=== PATIENT | female | born 1965 ===

== ENCOUNTER 2016-08-14 10:58 | Emergency (ER) | payer MEDICAID, OTHER ==
[2016-08-14 11:10] VITALS: TEMP 97
[2016-08-14 11:11] VITALS: BMI 27.3
[2016-08-14 11:24] VITALS: RESP 18
[2016-08-14] MEDS ORDERED: Promethazine/Cod 6.25mg-10mg/5ml Syr UD PO STA (11:42)
--- NOTE | 2016-08-14 11:45 | ED PDOC ---
HPI: CCC, URI, Sore Throat Time Seen by Provider: 08/14/16 11:20 Chief Complaint (Nursing): Cough, Cold, Congestion Chief Complaint (Provider): Cough, Cold, Congestion History Per: Patient History/Exam Limitations: no limitations Onset/Duration Of Symptoms: Days Current Symptoms Are (Timing): Still Present Location Of Pain: Throat, Diffuse Myalgias, Headache Sick Contacts (Context): None Associated Symptoms: Cough Ear Symptoms: Bilateral: None Severity: Mild Additional Complaint(s): Patient is a 51 year old female with a history of DM, presents to ED for evaluation of cough and sore throat for 3 days. Patient also notes chest pain and headache with coughing. Denies SOB, fever, nausea, vomiting or fever. States she took Tylenol. PMD: Clinic Past Medical History Reviewed: Historical Data, Nursing Documentation, Vital Signs Vital Signs: Last Vital Signs Temp 97 F L 08/14/16 11:20 Pulse 66 08/14/16 11:20 Resp 18 08/14/16 11:20 BP 109/51 L 08/14/16 11:09 Pulse Ox 97 08/14/16 12:44 - Medical History PMH: Diabetes, GERD - Surgical History Surgical History: No Surg Hx - Family History Family History: States: No Known Family Hx - Living Arrangements Living Arrangements: With Family - Home Medications Home Medications: Ambulatory Orders Medication Instructions Recorded Omeprazole 20 mg PO DAILY 12/04/15 Doxycycline Hyclate 100 mg PO BID #28 tab 01/25/16 Naproxen [Naprosyn] 1 tab PO BID PRN #60 tab 01/25/16 metroNIDAZOLE [Flagyl] 500 mg PO BID #28 tab 01/25/16 Albuterol HFA [Ventolin HFA 90 2 puff IH [id number] PRN #1 inh 08/14/16 mcg/actuation (8 g)] Promethazine/Codeine 5 ml PO Q6 PRN #100 ml 08/14/16 [Phenergan/Codeine Oral Syrup] - Allergies Allergies/Adverse Reactions: Allergies Allergy/AdvReac Type Severity Reaction Status Date / Time No Known Allergies Allergy Verified 04/12/16 10:42 Review of Systems ROS Statement: Except As Marked, All Systems Reviewed And Found Negative Constitutional: Negative for: Fever, Chills, Weakness Eyes: Negative for: Vision Change ENT: Positive for: Throat Pain. Negative for: Ear Pain, Nose Discharge, Nose Congestion Cardiovascular: Positive for: Chest Pain. Negative for: Light Headedness Respiratory: Positive for: Cough. Negative for: Shortness of Breath, Sputum Gastrointestinal: Negative for: Nausea, Vomiting Musculoskeletal: Negative for: Neck Pain Skin: Negative for: Rash Neurological: Positive for: Headache. Negative for: Weakness, Numbness, Dizziness Physical Exam - Reviewed Nursing Documentation Reviewed: Yes Vital Signs Reviewed: Yes - Physical Exam Appears: Positive for: Non-toxic, No Acute Distress Skin: Positive for: Normal Color, Warm. Negative for: Rash Eye Exam: Positive for: Normal appearance, PERRL ENT: Negative for: Pharyngeal Erythema, Tonsillar Exudate Neck: Positive for: Normal, Painless ROM, Supple Cardiovascular/Chest: Positive for: Regular Rate, Rhythm. Negative for: Murmur Respiratory: Positive for: Normal Breath Sounds. Negative for: Respiratory Distress Extremity: Positive for: Normal ROM Neurologic/Psych: Positive for: Alert, Oriented - ECG O2 Sat by Pulse Oximetry: 97 (RA) Pulse Ox Interpretation: Normal - Radiology X-Ray: Viewed By Me, Read By Radiologist X-Ray Interpretation: No Acute Disease Medical Decision Making Medical Decision Making: Time: 1135 Initial impression: Viral illness vs. pharyngitis vs. bronchitis r/o influenza Initial plan: -- CXR -- Motrin PO -- Premethazine/Codeine -- Flu swab Scribe Attestation: Documented by Olga Claire acting as a scribe for Matt Hudson MD MD Scribe Attestation: All medical record entries made by the Scribe were at my direction and personally dictated by me. I have reviewed the chart and agree that the record accurately reflects my personal performance of the history, physical exam, medical decision making, and the department course for this patient. I have also personally directed, reviewed, and agree with the discharge instructions and disposition. Disposition - Clinical Impression Clinical Impression: Bronchitis - Patient ED Disposition Is Patient to be Admitted: No Doctor Will See Patient In The: Office Counseled Patient/Family Regarding: Studies Performed, Diagnosis, Need For Followup - Disposition Referrals: LTAC, [facility] within [facility] [Outside] Disposition: Routine/Home Disposition Time: 12:41 Condition: GOOD Additional Instructions: Return for worsening. Follow up with your PCP in 2-3 days. Prescriptions: Albuterol HFA [Ventolin HFA 90 mcg/actuation (8 g)] 2 puff IH [id number] PRN #1 inh PRN Reason: Wheezing Promethazine/Codeine [Phenergan/Codeine Oral Syrup] 5 ml PO Q6 PRN #100 ml PRN Reason: Cough Instructions: Acute Bronchitis (ED) Print Language: ESTONIAN
[2016-08-14] MEDS ORDERED: Promethazine/Cod 6.25mg-10mg/5ml Syr UD ONE (12:01)
--- NOTE | 2016-08-14 12:21 | RAD ---
HISTORY: chest pain cough COMPARISON: 04/12/2016 FINDINGS: LUNGS: The lungs are clear. PLEURA: No significant pleural effusion identified, no pneumothorax apparent. CARDIOVASCULAR: Normal. OSSEOUS STRUCTURES: No significant abnormalities. VISUALIZED UPPER ABDOMEN: Normal. OTHER FINDINGS: None. IMPRESSION: No active pulmonary disease.
[2016-08-14 12:59] VITALS: BP 110/60; PULSE 70; O2SAT 99
== END 2016-08-14 12:55 | disposition home or self-care (01) ==
LOC: H.ER 10:58
DX: J40 Bronchitis, not specified as acute or chronic (principal)

== ENCOUNTER 2017-05-16 05:59 | Emergency (ER) | payer MEDICAID, OTHER, SELFPAY ==
[2017-05-16 06:12] VITALS: BMI 28.0
--- NOTE | 2017-05-16 06:47 | ED PDOC ---
HPI: Abdomen Time Seen by Provider: 05/16/17 06:21 Chief Complaint (Nursing): Abdominal Pain Chief Complaint (Provider): Abdominal Pain History Per: Patient History/Exam Limitations: no limitations Onset/Duration Of Symptoms: Days (x 2) Current Symptoms Are (Timing): Still Present Location Of Pain/Discomfort: Epigastric Additional Complaint(s): 51-year-old female with a past medical history of diabetes presents to the emergency department complaining of epigastric pain associated with several episodes of vomiting, since yesterday. Symptoms began after dinner, and the pain has been constant. Vomit is described as non-bloody, non-bilious. She denies any fever, diarrhea, urinary frequency or dysuria. Patient currently still feels nauseous. She has not tolerated any liquids PO. PMD: The clinic Past Medical History Reviewed: Historical Data, Nursing Documentation, Vital Signs Vital Signs: Last Vital Signs Temp 98 F 05/16/17 13:00 Pulse 72 05/16/17 13:00 Resp 20 05/16/17 13:00 BP 112/74 05/16/17 13:00 Pulse Ox 98 05/16/17 13:00 - Medical History PMH: Diabetes, GERD - Surgical History Surgical History: No Surg Hx - Family History Family History: States: Unknown Family Hx - Home Medications Home Medications: Ambulatory Orders Medication Instructions Recorded Omeprazole 20 mg PO DAILY 12/04/15 Doxycycline Hyclate 100 mg PO BID #28 tab 01/25/16 Naproxen [Naprosyn] 1 tab PO BID PRN #60 tab 01/25/16 metroNIDAZOLE [Flagyl] 500 mg PO BID #28 tab 01/25/16 Albuterol HFA [Ventolin HFA 90 2 puff IH [id number] PRN #1 inh 08/14/16 mcg/actuation (8 g)] Promethazine/Codeine 5 ml PO Q6 PRN #100 ml 08/14/16 [Phenergan/Codeine Oral Syrup] Dicyclomine [Dicyclomine HCl] 10 mg PO TID PRN #10 cap 05/16/17 Ibuprofen [Motrin Tab] 600 mg PO Q6 PRN #15 tab 05/16/17 Ondansetron [Zofran] 4 mg PO Q6H PRN #10 tab 05/16/17 - Allergies Allergies/Adverse Reactions: Allergies Allergy/AdvReac Type Severity Reaction Status Date / Time No Known Allergies Allergy Verified 05/16/17 06:11 Review of Systems ROS Statement: Except As Marked, All Systems Reviewed And Found Negative Constitutional: Negative for: Fever, Chills Gastrointestinal: Positive for: Nausea, Vomiting, Abdominal Pain. Negative for : Diarrhea Genitourinary Female: Negative for: Dysuria, Frequency Physical Exam - Reviewed Nursing Documentation Reviewed: Yes Vital Signs Reviewed: Yes - Physical Exam Appears: Positive for: No Acute Distress, Uncomfortable Head Exam: Positive for: ATRAUMATIC, NORMOCEPHALIC Skin: Positive for: Normal Color, Warm, Dry Eye Exam: Positive for: EOMI, Normal appearance, PERRL Neck: Positive for: Normal, Painless ROM, Supple Cardiovascular/Chest: Positive for: Regular Rate, Rhythm. Negative for: Murmur Respiratory: Positive for: Normal Breath Sounds. Negative for: Accessory Muscle Use, Respiratory Distress Gastrointestinal/Abdominal: Positive for: Soft, Tenderness (epigastric and RUQ tenderness). Negative for: Guarding, Rebound Back: Positive for: Normal Inspection. Negative for: Vertebral Tenderness Extremity: Positive for: Normal ROM. Negative for: Pedal Edema, Deformity Neurologic/Psych: Positive for: Alert, Oriented - Laboratory Results Result Diagrams: 05/16/17 06:58 05/16/17 06:58 - ECG O2 Sat by Pulse Oximetry: 97 (RA) Pulse Ox Interpretation: Normal Medical Decision Making Medical Decision Making: Time: 06:52 Initial Impression: Abdominal pain Initial Plan: * ED urine dipstick * CMP * Lipase * CBC w/ differential * Morphine 4 mg IVP * NS IV 1000 ml at 1000 mls/hr * Zofran 4 mg IV * Pending US Abdomen Patient will be signed out to Dr. Adorno as of 07:00, pending full ER work-up and reevaluation. Scribe Attestation: Documented by Nandini Kirk, acting as a scribe for Matt Hudson MD Provider Scribe Attestation: All medical record entries made by the Scribe were at my direction and personally dictated by me. I have reviewed the chart and agree that the record accurately reflects my personal performance of the history, physical exam, medical decision making, and the department course for this patient. I have also personally directed, reviewed, and agree with the discharge instructions and disposition. Disposition - Clinical Impression Clinical Impression: Abdominal pain, Vomiting - Patient ED Disposition Is Patient to be Admitted: Transfer of Care Doctor Will See Patient In The: Office Counseled Patient/Family Regarding: Studies Performed, Diagnosis, Need For Followup - Disposition Referrals: FAMILY PROVIDER,NO [Primary Care Provider] - Disposition: Transfer of Care Disposition Time: 07:00 Condition: STABLE Additional Instructions: Liquid diet today, advance as tolerated, return to ER for any worse or new symptoms Take medications as directed. Prescriptions: Dicyclomine [Dicyclomine HCl] 10 mg PO TID PRN #10 cap PRN Reason: Gi Distress Ibuprofen [Motrin Tab] 600 mg PO Q6 PRN #15 tab PRN Reason: Pain, Moderate (4-7) Ondansetron [Zofran] 4 mg PO Q6H PRN #10 tab PRN Reason: Nausea/Vomiting Instructions: Gastroenteritis (ED), Acute Abdominal Pain (ED) Forms: [employer] (Latvian) Patient Signed Over To: Tanner Adorno III (pending full work-up)
[2017-05-16] MEDS ORDERED: Sodium Chloride 0.9% 1,000 ML IV STA ×2 (06:53→11:36)
[2017-05-16] MEDS ORDERED: Morphine 4 MG/ML VIAL IVP ONE (06:53)
[2017-05-16] MEDS ORDERED: Morphine 4 MG/ML VIAL ONE (07:04)
--- NOTE | 2017-05-16 07:08 | ED PDOC ---
- Laboratory Results Result Diagrams: 05/16/17 06:58 05/16/17 06:58 - ECG O2 Sat by Pulse Oximetry: 97 (RA) Medical Decision Making Medical Decision Makin:00 Patient signed out to me by Dr. Hudson pending Ultrasound, Labs, and possible CT. Accession No. : [id number] Patient Name / ID : JOIE RODRIGUEZ / [id number] Exam Date : 05/16/2017 10:05:21 ( Approved ) Study Comment : Sex / Age : F / 51Y Creator : Bubba Escobedo MD Dictator : Bubba Escobedo MD Material Assistant : Print Production Associate : Bubba Escobedo MD Approver2 : Report Date : 05/16/2017 10:37:21 My Comment : PROCEDURE: CT Abdomen and Pelvis with contrast HISTORY: R abd pain, vomiting COMPARISON: None. TECHNIQUE: Contrast dose: 95 mL Omnipaque 300 Radiation dose: Total exam DLP = 611.20 mGy-cm. This CT exam was performed using one or more of the following dose reduction techniques: Automated exposure control, adjustment of the mA and/or kV according to patient size, and/or use of iterative reconstruction technique. FINDINGS: LOWER THORAX: Unremarkable. LIVER: Unremarkable. No gross lesion or ductal dilatation. GALLBLADDER AND BILE DUCTS: Unremarkable. PANCREAS: Unremarkable. No gross lesion or ductal dilatation. SPLEEN: Unremarkable. ADRENALS: Unremarkable. No mass. KIDNEYS AND URETERS: Unremarkable. No hydronephrosis. No solid mass. VASCULATURE: Unremarkable. No aortic aneurysm. BOWEL: Unremarkable. No obstruction. No gross mural thickening. APPENDIX: Normal appendix. PERITONEUM: Unremarkable. No free fluid. No free air. LYMPH NODES: Unremarkable. No enlarged lymph nodes. BLADDER: Unremarkable. REPRODUCTIVE: Normal uterus BONES: No acute fracture. OTHER FINDINGS: None. IMPRESSION: Unremarkable contrast enhanced CT of the abdomen and pelvis Reassess --1030a improving, no vomiting, abdomen mild diffuse tenderness Scribe Attestation: Documented by Jeovany Nova acting as a scribe for Tanner Adorno DO. Disposition - Disposition Referrals: FAMILY PROVIDER,NO [Primary Care Provider] - Forms: [employer] (Divehi)
[2017-05-16 07:17] LABS: ALBUMIN 4.5 g/dL (3.5-5.0); ALT/SGPT 71 U/L (9-52); AST/SGOT 32 U/L (14-36); BLOOD UREA NITROGEN 31 mg/dl (7-17); CALCIUM 9.6 mg/dL (8.4-10.2); GFR AFRICAN-AMERICAN > 60; GFR NON-AFRICAN AMERICAN > 60; LIPASE 48 U/L (23-300)
[2017-05-16 07:22] LABS: ALB/GLOB RATIO 1.2 (1.0-2.1)
[2017-05-16 07:53] LABS: HEMOGLOBIN 13.6 g/dL (12.0-16.0); LYMPH # 0.4 K/uL (1.0-4.3); LYMPH % 3.2 % (20.0-40.0); MEAN CELL VOLUME 90.2 fl (81.0-99.0); MEAN CORPUSCULAR HEMOGLOBIN 31.9 pg (27.0-31.0); MEAN CORPUSCULAR HGB CONC 35.3 g/dL (33.0-37.0); MEAN PLATELET VOLUME 9.2 fl (7.2-11.7); MONO # 0.4 K/uL (0.0-0.8); NEUT % 93.8 % (50.0-75.0); NRBC % 0.1 % (0.0-0.0); PLATELET COUNT 269 K/uL (130-400); RBC 4.26 Mil/uL (3.80-5.20); RED CELL DISTRIBUTION WIDTH 13.3 % (11.5-14.5); WHITE BLOOD COUNT 11.8 K/uL (4.8-10.8)
[2017-05-16 09:42] LABS: BANDS 4 % (0-2); LYMPHOCYTE 6 % (20-50); MONOCYTE 5 % (0-10); NEUTROPHIL 85 % (42-75); PLATELET ESTIMATE NORMAL (NORMAL); TOTAL CELLS COUNTED 100
--- NOTE | 2017-05-16 09:42 | US ---
HISTORY: ruq epigastric pain vomiting COMPARISON: None. TECHNIQUE: Sonographic evaluation of the right upper quadrant of the abdomen. FINDINGS: LIVER: Measures 17.6 cm in length. Diffusely increased echogenicity of the liver parenchyma. Consistent with fatty infiltration. No mass. No biliary ductal dilatation. GALLBLADDER: Unremarkable. No gallstones. COMMON BILE DUCT: Measures 5 mm. No stones. No dilatation. PANCREAS: Unremarkable as visualized. No mass. No ductal dilatation. RIGHT KIDNEY: Measures 11.7 cm in length. Normal echogenicity. No calculus, mass, or hydronephrosis. AORTA: No aneurysmal dilatation. IVC: Unremarkable. OTHER FINDINGS: None . IMPRESSION: No evidence of cholelithiasis or cholecystitis. Fatty infiltration of the liver. Otherwise unremarkable.
[2017-05-16] MEDS ORDERED: Iohexol 300 100 ML IJ ONE (09:52)
--- NOTE | 2017-05-16 10:38 | CT ---
PROCEDURE: CT Abdomen and Pelvis with contrast HISTORY: R abd pain, vomiting COMPARISON: None. TECHNIQUE: Contrast dose: 95 mL Omnipaque 300 Radiation dose: Total exam DLP = 611.20 mGy-cm. This CT exam was performed using one or more of the following dose reduction techniques: Automated exposure control, adjustment of the mA and/or kV according to patient size, and/or use of iterative reconstruction technique. FINDINGS: LOWER THORAX: Unremarkable. LIVER: Unremarkable. No gross lesion or ductal dilatation. GALLBLADDER AND BILE DUCTS: Unremarkable. PANCREAS: Unremarkable. No gross lesion or ductal dilatation. SPLEEN: Unremarkable. ADRENALS: Unremarkable. No mass. KIDNEYS AND URETERS: Unremarkable. No hydronephrosis. No solid mass. VASCULATURE: Unremarkable. No aortic aneurysm. BOWEL: Unremarkable. No obstruction. No gross mural thickening. APPENDIX: Normal appendix. PERITONEUM: Unremarkable. No free fluid. No free air. LYMPH NODES: Unremarkable. No enlarged lymph nodes. BLADDER: Unremarkable. REPRODUCTIVE: Normal uterus BONES: No acute fracture. OTHER FINDINGS: None. IMPRESSION: Unremarkable contrast enhanced CT of the abdomen and pelvis.
[2017-05-16 13:28] VITALS: BP 112/74; PULSE 72; RESP 20; TEMP 98
[2017-05-16 19:21] VITALS: O2SAT 97
== END 2017-05-16 13:00 | disposition home or self-care (01) ==
LOC: H.ER 05:59
DX: K52.9 Noninfective gastroenteritis and colitis, unspecified (principal); E11.9 Type 2 diabetes mellitus without complications; K21.9 Gastro-esophageal reflux disease without esophagitis; K76.0 Fatty (change of) liver, not elsewhere classified
CPT/HCPCS: 74177; 76705; 80053; 82948; 83690; 85025; 96361; 96374; 96375; 99283; J1885; J2270; J2405; J7040; Q9967

== ENCOUNTER 2017-06-23 17:43 | Emergency (ER) | payer MEDICAID, OTHER ==
[2017-06-23 17:43] VITALS: BMI 26.2
[2017-06-23 17:59] VITALS: BP 125/63; PULSE 85; RESP 16; TEMP 99.3; O2SAT 99
[2017-06-23] MEDS ORDERED: Naproxen 500 MG TAB PO ONE (18:49)
--- NOTE | 2017-06-23 19:06 | ED PDOC ---
HPI: CCC, URI, Sore Throat Time Seen by Provider: 06/23/17 18:01 Chief Complaint (Nursing): Flu-like Symptoms Chief Complaint (Provider): Flu-like symptoms History Per: Patient History/Exam Limitations: no limitations Onset/Duration Of Symptoms: Days Current Symptoms Are (Timing): Still Present Associated Symptoms: Fever, Cough, Nasal Congestion, Other (body aches). denies : Nausea, Vomiting, Diarrhea Ear Symptoms: Bilateral: None Additional Complaint(s): Nicki Roberson is a 51 year old female, with a past medical history of diabetes, who presents to the emergency department complaining of fever, cough, congestion and body aches onset for x3 days. Patient took Tylenol with no relief of symptoms. She denies any chest pain, shortness of breath, hemoptysis, abdominal pain, nausea, vomit or diarrhea. No further medical complaints. PMD: None provided. Past Medical History Reviewed: Historical Data, Nursing Documentation, Vital Signs Vital Signs: Last Vital Signs Temp 99.3 F 06/23/17 17:57 Pulse 85 06/23/17 17:57 Resp 16 06/23/17 17:57 BP 125/63 06/23/17 17:57 Pulse Ox 99 06/23/17 19:55 - Medical History PMH: Diabetes, GERD - Surgical History Surgical History: No Surg Hx - Family History Family History: States: Unknown Family Hx - Social History Current smoker - smoking cessation education provided: No Alcohol: None Drugs: Denies - Home Medications Home Medications: Ambulatory Orders Medication Instructions Recorded Omeprazole 20 mg PO DAILY 12/04/15 Doxycycline Hyclate 100 mg PO BID #28 tab 01/25/16 Naproxen [Naprosyn] 1 tab PO BID PRN #60 tab 01/25/16 metroNIDAZOLE [Flagyl] 500 mg PO BID #28 tab 01/25/16 Albuterol HFA [Ventolin HFA 90 2 puff IH [id number] PRN #1 inh 08/14/16 mcg/actuation (8 g)] Promethazine/Codeine 5 ml PO Q6 PRN #100 ml 08/14/16 [Phenergan/Codeine Oral Syrup] Dicyclomine [Dicyclomine HCl] 10 mg PO TID PRN #10 cap 05/16/17 Ibuprofen [Motrin Tab] 600 mg PO Q6 PRN #15 tab 05/16/17 Ondansetron [Zofran] 4 mg PO Q6H PRN #10 tab 05/16/17 Azithromycin [Zithromax] 250 mg PO DAILY #6 tab 06/23/17 Benzonatate [Tessalon Perle] 100 mg PO Q8 PRN #30 capsule 06/23/17 Ibuprofen [Motrin] 600 mg PO Q6 PRN #15 tab 06/23/17 - Allergies Allergies/Adverse Reactions: Allergies Allergy/AdvReac Type Severity Reaction Status Date / Time No Known Allergies Allergy Verified 06/23/17 17:56 Review of Systems ROS Statement: Except As Marked, All Systems Reviewed And Found Negative Constitutional: Positive for: Fever, Other (body aches) ENT: Positive for: Nose Congestion Cardiovascular: Negative for: Chest Pain Respiratory: Positive for: Cough. Negative for: Shortness of Breath, Hemoptysis Gastrointestinal: Negative for: Nausea, Vomiting, Abdominal Pain, Diarrhea Physical Exam - Reviewed Nursing Documentation Reviewed: Yes Vital Signs Reviewed: Yes - Physical Exam Comments: Appears: No acute distress Skin: Normal color, Warm, Dry Eyes: Normal appearance, PERRL, EOMI ENT: Normal Cardiac: Regular rate and rhythm Lungs: Normal breath sounds, no respiratory distress, no accessory muscle use Abdominal: No tenderness Neuro: Alert, Oriented - ECG O2 Sat by Pulse Oximetry: 99 (RA) Pulse Ox Interpretation: Normal - Radiology X-Ray: Interpreted by Oh (CXR) X-Ray Interpretation: No Acute Disease Medical Decision Making Medical Decision Making: Initial Impression: Influenza-like illness Initial Plan: --CXR (PA/LAT) [Chest two views (AP/LAT)] [RAD] --Naproxen 500 mg PO --reevaluation ~ Scribe Attestation: Documented by Aleyxs Escamilla, acting as a scribe for Dakota E Pormentilla PA-C. Provider Scribe Attestation: All medical record entries made by the Scribe were at my direction and personally dictated by me. I have reviewed the chart and agree that the record accurately reflects my personal performance of the history, physical exam, medical decision making, and the department course for this patient. I have also personally directed, reviewed, and agree with the discharge instructions and disposition. Disposition - Clinical Impression Clinical Impression: Influenza-like symptoms - Patient ED Disposition Is Patient to be Admitted: No - Disposition Disposition: Routine/Home Disposition Time: 19:53 Condition: STABLE Prescriptions: Azithromycin [Zithromax] 250 mg PO DAILY #6 tab Benzonatate [Tessalon Perle] 100 mg PO Q8 PRN #30 capsule PRN Reason: Cough Ibuprofen [Motrin] 600 mg PO Q6 PRN #15 tab PRN Reason: Fever >100.4 F Instructions: Influenza (ED) Forms: [employer] (Hungarian) Print Language: CAMEROONIAN
--- NOTE | 2017-06-24 12:46 | RAD ---
HISTORY: cough COMPARISON: Comparison is made with 08/14/2026 TECHNIQUE: Chest PA and lateral FINDINGS: LUNGS: No active pulmonary disease. PLEURA: No significant pleural effusion identified. No pneumothorax apparent. CARDIOVASCULAR: Normal. OSSEOUS STRUCTURES: No significant abnormalities. VISUALIZED UPPER ABDOMEN: Normal. OTHER FINDINGS: None. IMPRESSION: No active disease. No significant interval change noted since the previous exam.
== END 2017-06-23 20:17 | disposition home or self-care (01) ==
LOC: H.ER 17:43
DX: J11.1 Influenza due to unidentified influenza virus with other respiratory manifestations (principal); E11.9 Type 2 diabetes mellitus without complications

== ENCOUNTER 2017-09-15 18:48 | Emergency (ER) | payer SELFPAY ==
[2017-09-15 18:48] VITALS: BMI 26.2
[2017-09-15 19:09] VITALS: BP 156/79; PULSE 64; RESP 18; TEMP 97.5; O2SAT 99
--- NOTE | 2017-09-15 20:24 | ED PDOC ---
HPI: Back Time Seen by Provider: 09/15/17 19:42 Chief Complaint (Nursing): Back Pain Chief Complaint (Provider): Back Pain History Per: Patient History/Exam Limitations: no limitations, language barrier (interpreter translator #: [id number] ) Onset/Duration Of Symptoms: Days Current Symptoms Are (Timing): Still Present Additional Complaint(s): Nicki Roberson is a 52 year old female with a past medical history of diabetes and gastroesophageal reflux disease who is presenting to the ER with complaints of lower back pain, onset 1 week ago. Patient states that the pain sometimes radiates to her abdomen, and has associated shoulder pain. She denies any nausea, vomiting, diarrhea, fevers, or urinary symptoms. Patient offers no other medical complaints at this time. PMD: Doctor, Dion Past Medical History Reviewed: Historical Data, Nursing Documentation, Vital Signs Vital Signs: Last Vital Signs Temp 97.5 F L 09/15/17 19:06 Pulse 64 09/15/17 19:06 Resp 18 09/15/17 19:06 BP 156/79 H 09/15/17 19:06 Pulse Ox 99 09/15/17 19:06 - Medical History PMH: Diabetes, GERD - Surgical History Surgical History: No Surg Hx - Family History Family History: States: Unknown Family Hx - Social History Current smoker - smoking cessation education provided: No Alcohol: None Drugs: Denies - Home Medications Home Medications: Ambulatory Orders Medication Instructions Recorded Omeprazole 20 mg PO DAILY 12/04/15 Doxycycline Hyclate 100 mg PO BID #28 tab 01/25/16 Naproxen [Naprosyn] 1 tab PO BID PRN #60 tab 01/25/16 metroNIDAZOLE [Flagyl] 500 mg PO BID #28 tab 01/25/16 Albuterol HFA [Ventolin HFA 90 2 puff [id number] [id number] PRN #1 inh 08/14/16 mcg/actuation (8 g)] Promethazine/Codeine 5 ml PO Q6 PRN #100 ml 08/14/16 [Phenergan/Codeine Oral Syrup] Dicyclomine [Dicyclomine HCl] 10 mg PO TID PRN #10 cap 05/16/17 Ibuprofen [Motrin Tab] 600 mg PO Q6 PRN #15 tab 05/16/17 Ondansetron [Zofran] 4 mg PO Q6H PRN #10 tab 05/16/17 Azithromycin [Zithromax] 250 mg PO DAILY #6 tab 06/23/17 Benzonatate [Tessalon Perle] 100 mg PO Q8 PRN #30 capsule 06/23/17 Ibuprofen [Motrin] 600 mg PO Q6 PRN #15 tab 06/23/17 Cyclobenzaprine [Cyclobenzaprine 10 mg PO Q8H PRN #12 tab 09/15/17 HCl] predniSONE [predniSONE Tab] 20 mg PO DAILY #12 tab 09/15/17 - Allergies Allergies/Adverse Reactions: Allergies Allergy/AdvReac Type Severity Reaction Status Date / Time No Known Allergies Allergy Verified 06/23/17 17:56 Review of Systems ROS Statement: Except As Marked, All Systems Reviewed And Found Negative Constitutional: Negative for: Fever Gastrointestinal: Positive for: Abdominal Pain (mild). Negative for: Nausea, Vomiting, Diarrhea Genitourinary Female: Negative for: Other (urinary symptoms) Musculoskeletal: Positive for: Back Pain Physical Exam - Reviewed Nursing Documentation Reviewed: Yes Vital Signs Reviewed: Yes - Physical Exam Appears: Positive for: Non-toxic, No Acute Distress Head Exam: Positive for: ATRAUMATIC, NORMAL INSPECTION, NORMOCEPHALIC Skin: Positive for: Normal Color, Warm Eye Exam: Positive for: Normal appearance ENT: Positive for: Normal ENT Inspection Neck: Positive for: Normal Cardiovascular/Chest: Positive for: Regular Rate, Rhythm Respiratory: Positive for: Normal Breath Sounds. Negative for: Respiratory Distress Gastrointestinal/Abdominal: Positive for: Normal Exam, Soft. Negative for: Tenderness, Guarding Back: Positive for: Other (mild paralumbar tenderness). Negative for: Vertebral Tenderness Extremity: Positive for: Normal ROM. Negative for: Deformity Neurologic/Psych: Positive for: Alert, Oriented. Negative for: Motor/Sensory Deficits - ECG O2 Sat by Pulse Oximetry: 99 (RA) Pulse Ox Interpretation: Normal Medical Decision Making Medical Decision Making: Time: 20:19 Plan: --Flexeril 10 mg PO --Solu-Medrol 125 mg IV --Urine Culture --Urinalysis Urine without sign of infection. Scribe Attestation: Documented by Sabrina Maurer, acting as a scribe for Li Le PA-C. Provider Scribe Attestation: All medical record entries made by the Scribe were at my direction and personally dictated by me. I have reviewed the chart and agree that the record accurately reflects my personal performance of the history, physical exam, medical decision making, and the department course for this patient. I have also personally directed, reviewed, and agree with the discharge instructions and disposition Disposition - Clinical Impression Clinical Impression: Sciatica - Patient ED Disposition Is Patient to be Admitted: No - Disposition Disposition: Routine/Home Disposition Time: 21:16 Condition: GOOD Prescriptions: Cyclobenzaprine [Cyclobenzaprine HCl] 10 mg PO Q8H PRN #12 tab PRN Reason: Muscle Spasm predniSONE [predniSONE Tab] 20 mg PO DAILY #12 tab Instructions: Sciatica Forms: [employer] (Gambian)
[2017-09-15 21:02] LABS: SQUAMOUS EPITHIAL < 1 /hpf (0-5); URINE BACTERIA RARE (<OCC); URINE BILIRUBIN NEGATIVE (NEGATIVE); URINE BLOOD NEGATIVE (NEGATIVE); URINE CLARITY CLEAR (Clear); URINE COLOR STRAW (YELLOW); URINE GLUCOSE (UA) NEG (Normal); URINE LEUKOCYTE ESTERASE TRACE Leu/uL (Negative); URINE PROTEIN NEGATIVE (NEGATIVE); URINE UROBILINOGEN 0.2-1.0 mg/dL (0.2-1.0)
== END 2017-09-15 22:59 | disposition home or self-care (01) ==
LOC: H.ER 18:48
DX: M54.30 Sciatica, unspecified side (principal); E11.9 Type 2 diabetes mellitus without complications; K21.9 Gastro-esophageal reflux disease without esophagitis
CPT/HCPCS: 81003; 87086; 96372; 99283; J2930

== ENCOUNTER 2018-04-06 17:53 | Emergency (ER) | payer MEDICAID, OTHER ==
[2018-04-06 17:53] VITALS: BMI 26.2
[2018-04-06 18:24] VITALS: BP 137/74; PULSE 65; RESP 16; TEMP 98.3; O2SAT 99
[2018-04-06] MEDS ORDERED: Sodium Chloride 0.9% 1,000 ML IV STA (18:57)
[2018-04-06] MEDS ORDERED: Oxycodone/Acetaminophen 5/325 mg Tab PO STA (18:57)
[2018-04-06] MEDS ORDERED: Oxycodone/Acetaminophen 5/325 mg Tab ONE (19:06)
[2018-04-06 19:43] LABS: BASO % 0.1 % (0.0-2.0); EOS # 0.1 K/uL (0.0-0.7); EOS % 1.3 % (0.0-4.0); HEMOGLOBIN 12.7 g/dL (12.0-16.0); LYMPH # 2.2 K/uL (1.0-4.3); MEAN CORPUSCULAR HEMOGLOBIN 30.9 pg (27.0-31.0); MEAN PLATELET VOLUME 8.9 fl (7.2-11.7); MONO # 0.6 K/uL (0.0-0.8); MONO % 6.9 % (0.0-10.0); NEUT # 5.5 K/uL (1.8-7.0); NEUT % 65.7 % (50.0-75.0); NRBC % 0.1 % (0.0-0.0); RBC 4.11 Mil/uL (3.80-5.20); RED CELL DISTRIBUTION WIDTH 14.4 % (11.5-14.5); WHITE BLOOD COUNT 8.4 K/uL (4.8-10.8)
--- NOTE | 2018-04-06 19:43 | ED PDOC ---
HPI: Abdomen Time Seen by Provider: 04/06/18 18:34 Chief Complaint (Nursing): Abdominal Pain Chief Complaint (Provider): Abdominal Pain History Per: Patient History/Exam Limitations: no limitations Onset/Duration Of Symptoms: Days (x2) Current Symptoms Are (Timing): Still Present Additional Complaint(s): 52 year old with pmHx of pre-diabetes, presents to ED with a complaint of worsening lower abdominal pain associated with dysuria and lower back pain since yesterday. Patient states symptoms feel similar to menstrual cramps, however, she has been menopausal for over a year. She denies any fever, chills, bloody urine, vomiting, diarrhea, constipation, or taking medication for relief STENO TYPIST. PCP: Dr. Carrol Joe Past Medical History Reviewed: Historical Data, Nursing Documentation, Vital Signs Vital Signs: Last Vital Signs Temp 98.3 F 04/06/18 18:20 Pulse 65 04/06/18 18:20 Resp 16 04/06/18 18:20 BP 137/74 04/06/18 18:20 Pulse Ox 99 04/06/18 18:20 - Medical History PMH: Diabetes, GERD - Family History Family History: States: Unknown Family Hx - Home Medications Home Medications: Ambulatory Orders Medication Instructions Recorded RX: Omeprazole 20 mg PO DAILY 12/04/15 RX: Doxycycline Hyclate 100 mg PO BID #28 tab 01/25/16 RX: Naproxen [Naprosyn] 1 tab PO BID PRN #60 tab 01/25/16 metroNIDAZOLE [Flagyl] 500 mg PO BID #28 tab 01/25/16 RX: Albuterol HFA [Ventolin HFA 90 2 puff IH [id number] PRN #1 inh 08/14/16 mcg/actuation (8 g)] RX: Promethazine/Codeine 5 ml PO Q6 PRN #100 ml 08/14/16 [Phenergan/Codeine Oral Syrup] Dicyclomine [Dicyclomine HCl] 10 mg PO TID PRN #10 cap 05/16/17 Ondansetron [Zofran] 4 mg PO Q6H PRN #10 tab 05/16/17 RX: Ibuprofen [Motrin Tab] 600 mg PO Q6 PRN #15 tab 05/16/17 Azithromycin [Zithromax] 250 mg PO DAILY #6 tab 06/23/17 Benzonatate [Tessalon Perle] 100 mg PO Q8 PRN #30 capsule 06/23/17 Ibuprofen [Motrin] 600 mg PO Q6 PRN #15 tab 06/23/17 Cyclobenzaprine [Cyclobenzaprine 10 mg PO Q8H PRN #12 tab 09/15/17 HCl] RX: predniSONE [predniSONE Tab] 20 mg PO DAILY #12 tab 09/15/17 Nitrofurantoin Macrocrystals 100 mg PO BID #10 cap 04/06/18 [Macrobid] - Allergies Allergies/Adverse Reactions: Allergies Allergy/AdvReac Type Severity Reaction Status Date / Time No Known Allergies Allergy Verified 04/06/18 18:20 Review of Systems ROS Statement: Except As Marked, All Systems Reviewed And Found Negative Constitutional: Negative for: Fever, Chills Gastrointestinal: Positive for: Abdominal Pain (lower). Negative for: Vomiting, Diarrhea, Constipation Genitourinary Female: Positive for: Dysuria. Negative for: Hematuria Musculoskeletal: Positive for: Back Pain (left-sided) Physical Exam - Reviewed Nursing Documentation Reviewed: Yes Vital Signs Reviewed: Yes - Physical Exam Appears: Positive for: Non-toxic, No Acute Distress Head Exam: Positive for: ATRAUMATIC, NORMAL INSPECTION, NORMOCEPHALIC Skin: Positive for: Normal Color Eye Exam: Positive for: Normal appearance ENT: Positive for: Normal ENT Inspection Neck: Positive for: Normal Cardiovascular/Chest: Positive for: Regular Rate, Rhythm, Chest Non Tender Respiratory: Positive for: Normal Breath Sounds. Negative for: Respiratory Distress Gastrointestinal/Abdominal: Positive for: Soft, Tenderness (suprapubic). Negative for: Mass Back: Positive for: L CVA Tenderness. Negative for: R CVA Tenderness Extremity: Positive for: Normal ROM (upper/lower) Neurologic/Psych: Positive for: Alert, Oriented - Laboratory Results Result Diagrams: 04/06/18 19:27 04/06/18 19:27 - ECG O2 Sat by Pulse Oximetry: 99 (RA) Pulse Ox Interpretation: Normal Medical Decision Making Medical Decision Making: Time: 1856 Initial Plan: work-up for UTI vs. pyelonephritis vs. intra-abdominal pathology. * Labs * IV fluids * Percocet 5/325mg PO * Re-eval Scribe Attestation: Documented by Cat Parkinson, acting as a scribe for Marisa Reza MD. Provider Scribe Attestation: All medical record entries made by the Scribe were at my direction and personally dictated by me. I have reviewed the chart and agree that the record accurately reflects my personal performance of the history, physical exam, medical decision making, and the department course for this patient. I have also personally directed, reviewed, and agree with the discharge instructions and disposition. Pt continued to have left flank pain and abdominal pain and CT scan was performed to rule out stone which was normal. Pt now states she has had vaginal bleeding for the past few days despite having a year without menstruation. Labs show stable hemoglobin. Discussed the findings with the patient and her daughter. Will given Macrobid for UTI. Pt to schedule follow up appointment with gynecology for further workup and discussed the possibility of needing a biopsy. Disposition - Clinical Impression Clinical Impression: Urinary tract infection, Vaginal bleeding, abnormal - Disposition Disposition: Routine/Home Disposition Time: 22:15 Condition: STABLE Additional Instructions: Take antibiotics as prescribed for urinary tract infection. Follow up with gynecology for evaluation of vaginal bleeding. Return to the emergency department if symptoms worsen or if new symptoms develop. Prescriptions: Nitrofurantoin Macrocrystals [Macrobid] 100 mg PO BID #10 cap Instructions: Urinary Tract Infection, Adult (DC), Dysfunctional Uterine Bleeding (ED) Forms: [employer] (Lithuanian), [facility] ED School/Work Excuse Print Language: CONGOLESE
[2018-04-06 19:55] LABS: SQUAMOUS EPITHIAL 1 /hpf (0-5); URINE BACTERIA RARE (<OCC); URINE BILIRUBIN NEGATIVE (NEGATIVE); URINE BLOOD LARGE (NEGATIVE); URINE CLARITY SLIGHTY-CLOUDY (Clear); URINE COLOR YELLOW (YELLOW); URINE GLUCOSE (UA) NEG (Normal); URINE LEUKOCYTE ESTERASE TRACE Leu/uL (Negative); URINE PROTEIN NEGATIVE (NEGATIVE); URINE UROBILINOGEN 0.2-1.0 mg/dL (0.2-1.0)
[2018-04-06 19:56] LABS: ALB/GLOB RATIO 1.2 (1.0-2.1); ALBUMIN 4.3 g/dL (3.5-5.0); ALT/SGPT 28 U/L (9-52); AST/SGOT 21 U/L (14-36); BLOOD UREA NITROGEN 15 mg/dl (7-17); CALCIUM 9.3 mg/dL (8.4-10.2); GFR NON-AFRICAN AMERICAN > 60
--- NOTE | 2018-04-07 10:21 | CT ---
Date of service: 04/06/2018 PROCEDURE: CT Abdomen and Pelvis without intravenous contrast HISTORY: rule out left renal stone COMPARISON: 05/16/2017 TECHNIQUE: Without contrast.. Contrast dose: None Radiation dose: Total exam DLP = 505 mGy-cm. This CT exam was performed using one or more of the following dose reduction techniques: Automated exposure control, adjustment of the mA and/or kV according to patient size, and/or use of iterative reconstruction technique. FINDINGS: LOWER THORAX: Unremarkable. LIVER: Elongated liver-Vernon's lobe inferred. No gross lesion or ductal dilatation. GALLBLADDER AND BILE DUCTS: Unremarkable. PANCREAS: Unremarkable. No gross lesion or ductal dilatation. SPLEEN: Unremarkable. ADRENALS: Unremarkable. No mass. KIDNEYS AND URETERS: Possible nonobstructing sub mm left lower renal pole calculus (coronal series 601, image 67). Difficult to appreciate on the prior CT study due to its IV contrast enhanced nature. No larger or more significant appearing renal calcifications noted. No hydronephrosis. No masses appreciated on this non IV contrast enhanced study VASCULATURE: Unremarkable. No aortic aneurysm. No atherosclerotic calcification or mural plaque present. BOWEL: Moderate right-sided stool retention most notable with hepatic flexure redundancy.. No obstruction. Some of the mid to lower small bowel loops appear borderline prominent-however these are still less than 3 cm in maximum caliber. Findings are nonspecific. Evaluation of the wall is also somewhat limited without IV contrast. Scattered areas of minimal small bowel wall thickening cannot be excluded but are not strongly suspect on a diffuse basis. APPENDIX: Unremarkable. Normal appendix. PERITONEUM: Unremarkable. No free fluid. No free air. LYMPH NODES: Unremarkable. No enlarged lymph nodes. BLADDER: Moderately distended but otherwise unremarkable. REPRODUCTIVE: No discrete fibroids seen. The overall uterus appears somewhat prominent. Right oval hypodensity possible elongated somewhat flat and right ovarian cysts 2.6 x 1.0 cm. Element of concomitant compressed free fluid here could also simulate this appearance. This appearance is not noted on the prior 05/16/2017 CT. BONES: No acute fracture. Thoracic level spondylosis OTHER FINDINGS: None. IMPRESSION: No obstructing urolithiasis. Possible nonobstructing sub mm left lower renal pole calculus as detailed above. Elongated small right ovarian cyst versus compressed focal fluid in the cul-de-sac in this 52-year-old female. Uterus appears borderline prominent although no discrete fibroids are appreciated. If further evaluation is needed, consider pelvic ultrasound Moderate stool retention right colon with hepatic flexure redundancy. No large bowel obstruction.. The small bowel loops are not meeting criteria for pathological distension-visually these do appear however borderline prominent with fluid. It is unknown if the patient has any mild diarrhea if there is clinical suspicion of a mild enteritis. The findings may simply be top-normal variant. Clinical correlation is essential. The imaging findings are indeterminate Except for the this mention of a poss nonobstructing sub mm left lower renal pole calculus and the right adnexal appearance, the small-bowel findings were mentioned by the preliminary [place] report. The [place] report more strongly interpreted them to be secondary to an enteritis Clinical correlation is essential. The imaging findings regarding the small-bowel in this regard are felt to be indeterminate
== END 2018-04-06 22:29 | disposition home or self-care (01) ==
LOC: H.ER 17:53
DX: N39.0 Urinary tract infection, site not specified (principal); E11.9 Type 2 diabetes mellitus without complications
CPT/HCPCS: 74176; 80053; 81003; 85025; 99284; J7030

== ENCOUNTER 2018-07-19 21:05 | Emergency (ER) | payer MEDICAID, OTHER ==
[2018-07-19 21:06] VITALS: BMI 26.2
[2018-07-19 21:31] VITALS: BP 157/76; RESP 18
--- NOTE | 2018-07-19 21:50 | ED PDOC ---
HPI: CCC, URI, Sore Throat Time Seen by Provider: 07/19/18 21:34 Chief Complaint (Nursing): ENT Problem Chief Complaint (Provider): ENT Problem History Per: Patient History/Exam Limitations: no limitations Onset/Duration Of Symptoms: Days (x2) Additional Complaint(s): 53 y/o female with a PMHx of DM presents to the ED for evaluation of a headache, sore throat and body aches since this morning. Patient states symptoms initially began with a dry cough and a mild sore throat two days ago. Patient notes of developing body aches yesterday. Patient reports of having night sweats and chills as well as feeling feverish this morning. Patient states she did not measure his temperature. Patient notes of taking Tylenol at 9 AM this morning. Patient has not received this year's flu vaccination. Patient notes her was sick with similar symptoms two weeks ago. Otherwise, patient denies nausea, vomiting, ear pain, chest pain and shortness of breath. Patient is overall complaining of feeling unwell. Patient reports of drinking fluids normally. PMD: none provided Past Medical History Reviewed: Historical Data, Nursing Documentation, Vital Signs Vital Signs: Last Vital Signs Temp 100.5 F H 07/19/18 21:29 Pulse 88 07/19/18 21:29 Resp 18 07/19/18 21:29 BP 157/76 H 07/19/18 21:29 Pulse Ox 99 07/19/18 21:29 - Medical History PMH: Diabetes, GERD - Surgical History Surgical History: No Surg Hx - Family History Family History: States: Unknown Family Hx - Home Medications Home Medications: Ambulatory Orders Medication Instructions Recorded Omeprazole 20 mg PO DAILY 12/04/15 Doxycycline Hyclate 100 mg PO BID #28 tab 01/25/16 Naproxen [Naprosyn] 1 tab PO BID PRN #60 tab 01/25/16 metroNIDAZOLE [Flagyl] 500 mg PO BID #28 tab 01/25/16 Albuterol HFA [Ventolin HFA 90 2 puff IH [id number] PRN #1 inh 08/14/16 mcg/actuation (8 g)] Promethazine/Codeine 5 ml PO Q6 PRN #100 ml 08/14/16 [Phenergan/Codeine Oral Syrup] Dicyclomine [Dicyclomine HCl] 10 mg PO TID PRN #10 cap 05/16/17 Ibuprofen [Motrin Tab] 600 mg PO Q6 PRN #15 tab 05/16/17 Ondansetron [Zofran] 4 mg PO Q6H PRN #10 tab 05/16/17 Azithromycin [Zithromax] 250 mg PO DAILY #6 tab 06/23/17 Benzonatate [Tessalon Perle] 100 mg PO Q8 PRN #30 capsule 06/23/17 Ibuprofen [Motrin] 600 mg PO Q6 PRN #15 tab 06/23/17 Cyclobenzaprine [Cyclobenzaprine 10 mg PO Q8H PRN #12 tab 09/15/17 HCl] predniSONE [predniSONE Tab] 20 mg PO DAILY #12 tab 09/15/17 Nitrofurantoin Macrocrystals 100 mg PO BID #10 cap 04/06/18 [Macrobid] Ibuprofen [Motrin Tab] 600 mg PO Q6 PRN 7 Days tab 07/19/18 Oseltamivir Phosphate [Tamiflu] 75 mg PO BID 5 Days capsule 07/19/18 - Allergies Allergies/Adverse Reactions: Allergies Allergy/AdvReac Type Severity Reaction Status Date / Time No Known Allergies Allergy Verified 04/06/18 18:20 Review of Systems ROS Statement: Except As Marked, All Systems Reviewed And Found Negative Constitutional: Positive for: Fever, Chills, Sweats, Other (myalgia) ENT: Positive for: Throat Pain. Negative for: Ear Pain Cardiovascular: Negative for: Chest Pain Respiratory: Positive for: Cough. Negative for: Shortness of Breath Gastrointestinal: Negative for: Nausea, Vomiting Neurological: Positive for: Headache Physical Exam - Reviewed Nursing Documentation Reviewed: Yes Vital Signs Reviewed: Yes - Physical Exam Appears: Positive for: No Acute Distress ENT: Positive for: TM Is/Are (TMs are normal ), Pharyngeal Erythema. Negative for: Tonsillar Exudate, Tonsillar Swelling Neck: Positive for: Normal (Palpable submandibular lymph nodes) Cardiovascular/Chest: Positive for: Regular Rate, Rhythm. Negative for: Murmur Respiratory: Positive for: Normal Breath Sounds. Negative for: Respiratory Distress Lymphatic: Positive for: Normal Exam Neurologic/Psych: Positive for: Alert, Oriented - ECG O2 Sat by Pulse Oximetry: 99 (RA) Pulse Ox Interpretation: Normal Medical Decision Making Medical Decision Making: Time: 2140 Plan: -- Motrin 600 mg PO for fever -- Rapid Strep Group A Antigen -- Re-evaluation 23:00: rapid Strep negative, ZAMORA has improved but continues to have sore throat, ordered for Tylenol 975mg PO x 1 23:30: re-evaluated, feeling slightly better, fever defervesced, stable for d/c home. Scribe Attestation: Documented by Jhony Miller, acting as a scribe Corrine Obregon PA-C. Provider Scribe Attestation: All medical record entries made by the Scribe were at my direction and personally dictated by me. I have reviewed the chart and agree that the record accurately reflects my personal performance of the history, physical exam, medical decision making, and the department course for this patient. I have also personally directed, reviewed, and agree with the discharge instructions and disposition. Disposition - Clinical Impression Clinical Impression: Influenza - Patient ED Disposition Is Patient to be Admitted: No Counseled Patient/Family Regarding: Studies Performed, Diagnosis, Need For Followup, Rx Given - Disposition Referrals: [facility] [Outside] Disposition: Routine/Home Disposition Time: 23:36 Condition: STABLE Additional Instructions: Follow up with your primary care doctor as needed. Return to ER if you begin to have trouble breathing or are unable to keep any fluid down. Take Tylenol and Ibuprofen for fevers, body aches, Headache, throat pain. Get lots of rest and drink plenty of fluids. Take Tamiflu to reduce the severity of your symptoms. Prescriptions: Ibuprofen [Motrin Tab] 600 mg PO Q6 PRN 7 Days tab PRN Reason: Fever >100.4 F Oseltamivir Phosphate [Tamiflu] 75 mg PO BID 5 Days capsule Instructions: Flu, Adult (DC) Forms: [employer] (Greenlandic), [facility] ED School/Work Excuse Print Language: TANZANIAN
[2018-07-19 23:13] VITALS: PULSE 89; TEMP 99.4
[2018-07-20 00:53] VITALS: O2SAT 99
== END 2018-07-19 23:42 | disposition home or self-care (01) ==
LOC: H.ER 21:05
DX: J11.1 Influenza due to unidentified influenza virus with other respiratory manifestations (principal)